=== PATIENT | male | born 1935 | race Caucasian/White ===

== ENCOUNTER 2021-06-15 14:03 | Inpatient (IN) | payer BC, MEDICARE ==
[2021-06-15] MEDS ORDERED: Sodium Chloride 0.9% 10 ML Syringe FLUSH PRN ×2 (14:18)
[2021-06-15] MEDS ORDERED: Diltiazem 25 MG/5 ML SDV IVPUSH ONE (14:18)
[2021-06-15] MEDS ORDERED: Sodium Chloride 0.9% 1,000 ML IV SCH ×2 (14:30→17:15)
[2021-06-15] MEDS ORDERED: Ondansetron 4 MG/2 ML SDV IVPUSH PRN (14:41)
[2021-06-15] MEDS ORDERED: Ondansetron 4 MG/2 ML SDV ONE (15:00)
[2021-06-15] MEDS ORDERED: Albuterol/Ipratropium 3.0-0.5 MG/3 ML Neb Soln NEB ONE (16:51)
[2021-06-15] MEDS ORDERED: LORazepam 2 MG/ML SDV IV PRN (16:56)
[2021-06-15] MEDS ORDERED: Albuterol 0.083% 2.5 MG/3 ML Neb Soln NEB PRN (16:56)
[2021-06-15] MEDS ORDERED: Acetaminophen 650 MG Supp RECTAL PRN (16:56)
[2021-06-15] MEDS ORDERED: Morphine 2 MG/ML SYRINGE IVPUSH PRN (16:56)
[2021-06-15] MEDS ORDERED: Levofloxacin/Dextrose 5%-Water 750 MG in Levofloxacin/Dextrose 5%-Water 150 ML IV SCH (17:00)
== END 2021-06-15 18:48 | disposition expired | DRG 871 ==
LOC: LB.ED 14:03 → LB.MS 15:51
PROVIDERS: ADMIT Nurse Practitioner; ATTEND Nurse Practitioner
DX: A41.9 Sepsis, unspecified organism (principal); R09.02 Hypoxemia; R65.10 Systemic inflammatory response syndrome (SIRS) of non-infectious origin without acute organ dysfunction; J18.9 Pneumonia, unspecified organism; J96.91 Respiratory failure, unspecified with hypoxia; I25.10 Atherosclerotic heart disease of native coronary artery without angina pectoris; I10 Essential (primary) hypertension; Z66 Do not resuscitate; Z20.822 Contact with and (suspected) exposure to COVID-19; Z88.0 Allergy status to penicillin; Z90.49 Acquired absence of other specified parts of digestive tract; Z98.49 Cataract extraction status, unspecified eye
CPT/HCPCS: 36415; 70450; 71045; 80053; 81001; 83605; 85025; 93005; 93010; 96374; 96375; 99222; 99285; 99285-25; A0425; A0429; J2405; J3490; J7030; J7620; U0002